=== PATIENT | female | born 1995 | race Caucasian/White ===

== ENCOUNTER 2018-09-15 12:01 | Emergency (ER) | payer OTHER ==
[2018-09-15] MEDS: ONDANSETRON (ODT) 4 MG TAB ODT (13:09)
[2018-09-15] MEDS: KETOROLAC 60 MG INJ IM (13:19)
== END 2018-09-15 14:42 | disposition home or self-care (01) ==
LOC: FTE 12:01
DX: R51 Headache (principal); R00.2 Palpitations
CPT/HCPCS: 81025; 93005; 96372; 99284-25

== ENCOUNTER 2019-05-25 19:21 | Outpatient (CLI) | payer OTHER ==
[2019-05-25 20:42] LABS: ALANINE AMINOTRANSFERASE 424 IU/L (13-69); ALBUMIN 3.4 g/dl (3.3-4.9); ALBUMIN/GLOBULIN RATIO 1.03; ALKALINE PHOSPHATASE 246 IU/L (42-121); ANION GAP 10 (5-13); ASPARTATE AMINO TRANSFERASE 217 IU/L (15-46); BILIRUBIN,INDIRECT 0.4 mg/dl (0-1.1); BILIRUBIN,TOTAL 0.4 mg/dl (0.2-1.3); BLOOD UREA NITROGEN 9 mg/dl (7-20); CALCIUM 9.2 mg/dl (8.4-10.2); CARBON DIOXIDE 21 mmol/L (21-31); CHLORIDE 105 mmol/L (97-110); CREATININE 0.96 mg/dl (0.44-1.00); Estimated GFR > 60 mL/min (>60); GLUCOSE 123 mg/dl (70-220); POTASSIUM 3.8 mmol/L (3.5-5.1); SODIUM 136 mmol/L (135-144); TOTAL PROTEIN 6.7 g/dl (6.1-8.1)
== END 2019-05-25 22:21 | disposition home or self-care (01) ==
LOC: OBT 19:21 → L-D 19:22 → OBT 22:21
DX: O26.893 Other specified pregnancy related conditions, third trimester (principal); L29.9 Pruritus, unspecified; O24.410 Gestational diabetes mellitus in pregnancy, diet controlled; Z3A.33 33 weeks gestation of pregnancy
CPT/HCPCS: 76818; 80053; 82962

== ENCOUNTER 2019-05-26 14:56 | Outpatient (CLI) | payer OTHER ==
[2019-05-26 16:32] LABS: ADD UMIC YES; UR ASCORBIC ACID NEGATIVE (NEGATIVE); UR BACTERIA FEW /HPF (NONE SEEN); UR BILIRUBIN (Dip) NEGATIVE (NEGATIVE); UR BLOOD (Dip) 1+ mg/dL (NEGATIVE); UR CLARITY CLEAR (CLEAR); UR COLOR YELLOW (YELLOW); UR GLUCOSE (Dip) NEGATIVE (NEGATIVE); UR KETONES (Dip) 1+ mg/dL (NEGATIVE); UR LEUKOCYTE ESTERASE (Dip) NEGATIVE Leu/ul (NEGATIVE); UR NITRITE (Dip) NEGATIVE (NEGATIVE); UR RBC 0 /HPF (0-5); UR SPECIFIC GRAVITY (Dip) 1.002 (1.003-1.030); UR TOTAL PROTEIN (Dip) NEGATIVE (NEGATIVE); UR UROBILINOGEN (Dip) NEGATIVE (NEGATIVE); UR WBC 0 /HPF (0-5)
[2019-05-26] MEDS: LACTATED RINGER'S 1,000 ML IV (18:32)
== END 2019-05-26 18:45 | disposition home or self-care (01) ==
LOC: OBT 14:56 → L-D 14:57 → OBT 18:45
DX: O46.8X3 Other antepartum hemorrhage, third trimester (principal); Z3A.33 33 weeks gestation of pregnancy
CPT/HCPCS: 36415; 76817; 76818; 81001

== ENCOUNTER 2019-05-28 13:17 | Outpatient (CLI) | payer OTHER | END 2019-05-28 15:30 | disposition home or self-care (01) | LOC: OBT 13:17 → L-D 13:19 → OBT 15:30 | DX: O26.893 Other specified pregnancy related conditions, third trimester (principal); L29.9 Pruritus, unspecified; Z3A.34 34 weeks gestation of pregnancy | CPT/HCPCS: 76818 ==

== ENCOUNTER 2019-06-01 18:06 | Outpatient (CLI) | payer OTHER ==
[2019-06-01 23:02] LABS: ADD MAN DIFF? NO
[2019-06-01 23:09] LABS: BASOPHILS % 0.4 % (0.0-2.0); EOSINOPHILS # 0.1 10^3/ul (0.0-0.5); EOSINOPHILS % 0.9 % (0.0-7.0); HEMATOCRIT 40.1 % (37.0-47.0); HEMOGLOBIN 13.5 g/dl (12.0-16.0); LYMPHOCYTES # 2.6 10^3/ul (0.8-2.9); LYMPHOCYTES % 33.4 % (15.0-51.0); MEAN CORPUSCULAR HGB CONC 33.7 g/dl (32.0-37.0); MEAN CORPUSCULAR VOLUME 92.2 fl (82.0-101.0); MEAN PLATELET VOLUME 12.6 fl (7.4-10.4); MONOCYTE # 0.5 10^3/ul (0.3-0.9); MONOCYTES % 6.3 % (0.0-11.0); NEUTROPHIL # 4.6 10^3/ul (1.6-7.5); NEUTROPHILS % 58.7 % (39.0-77.0); PLATELET COUNT 214 10^3/UL (140-415); RED BLOOD COUNT 4.35 10^6/ul (4.20-5.40)
[2019-06-01 23:09] LABS: WHITE BLOOD COUNT 7.8 10^3/ul (4.8-10.8)
[2019-06-01 23:25] LABS: ALANINE AMINOTRANSFERASE 372 IU/L (13-69); ALBUMIN 3.2 g/dl (3.3-4.9); ALBUMIN/GLOBULIN RATIO 0.94; ALKALINE PHOSPHATASE 296 IU/L (42-121); ANION GAP 8 (5-13); ASPARTATE AMINO TRANSFERASE 179 IU/L (15-46); BILIRUBIN,INDIRECT 0.4 mg/dl (0-1.1); BILIRUBIN,TOTAL 0.4 mg/dl (0.2-1.3); BLOOD UREA NITROGEN 14 mg/dl (7-20); CARBON DIOXIDE 23 mmol/L (21-31); CHLORIDE 103 mmol/L (97-110); Estimated GFR > 60 mL/min (>60); GLUCOSE 90 mg/dl (70-220); POTASSIUM 3.9 mmol/L (3.5-5.1); SODIUM 134 mmol/L (135-144); TOTAL PROTEIN 6.6 g/dl (6.1-8.1); URIC ACID 5.4 mg/dl (3.1-7.9)
[2019-06-01 23:51] LABS: ADD UMIC NO; UR ASCORBIC ACID NEGATIVE (NEGATIVE); UR BILIRUBIN (Dip) NEGATIVE (NEGATIVE); UR BLOOD (Dip) NEGATIVE (NEGATIVE); UR CLARITY CLEAR (CLEAR); UR COLOR STRAW (YELLOW); UR GLUCOSE (Dip) NEGATIVE (NEGATIVE); UR KETONES (Dip) NEGATIVE (NEGATIVE); UR LEUKOCYTE ESTERASE (Dip) NEGATIVE Leu/ul (NEGATIVE); UR NITRITE (Dip) NEGATIVE (NEGATIVE); UR SPECIFIC GRAVITY (Dip) 1.004 (1.003-1.030); UR TOTAL PROTEIN (Dip) NEGATIVE (NEGATIVE); UR UROBILINOGEN (Dip) NEGATIVE (NEGATIVE)
== END 2019-06-02 00:45 | disposition home or self-care (01) ==
LOC: OBT 18:06 → L-D 18:07
DX: O26.613 Liver and biliary tract disorders in pregnancy, third trimester (principal); K83.1 Obstruction of bile duct; Z3A.34 34 weeks gestation of pregnancy
CPT/HCPCS: 76818; 80053; 81003; 84560; 85025

== ENCOUNTER 2019-06-03 20:11 | Inpatient (IN) | payer OTHER ==
[2019-06-03 22:15] LABS: COLLECTION PERIOD 24 hrs
[2019-06-03 22:35] LABS: CREATININE 0.78 mg/dl (0.44-1.00)
[2019-06-03 22:52] LABS: VOLUME 4100 mls
[2019-06-03 23:00] LABS: CREATININE,URINE RANDOM 29.88 mg/dl (20-320)
[2019-06-03 23:02] LABS: COLLECTION PERIOD 24 hrs; CREATININE CLEARANCE 121.5 mls/min (84.0-162.0); VOLUME 4100 ml/24hrs
[2019-06-04 00:41] LABS: ADD MAN DIFF? NO
[2019-06-04 00:44] LABS: WHITE BLOOD COUNT 7.5 10^3/ul (4.8-10.8)
[2019-06-04 00:44] LABS: BASOPHILS % 0.4 % (0.0-2.0); EOSINOPHILS # 0.1 10^3/ul (0.0-0.5); EOSINOPHILS % 0.7 % (0.0-7.0); HEMATOCRIT 39.6 % (37.0-47.0); HEMOGLOBIN 13.4 g/dl (12.0-16.0); LYMPHOCYTES # 2.2 10^3/ul (0.8-2.9); LYMPHOCYTES % 29.6 % (15.0-51.0); MEAN CORPUSCULAR HGB CONC 33.8 g/dl (32.0-37.0); MEAN CORPUSCULAR VOLUME 91.7 fl (82.0-101.0); MEAN PLATELET VOLUME 12.6 fl (7.4-10.4); MONOCYTE # 0.4 10^3/ul (0.3-0.9); MONOCYTES % 5.2 % (0.0-11.0); NEUTROPHIL # 4.8 10^3/ul (1.6-7.5); NEUTROPHILS % 63.7 % (39.0-77.0); PLATELET COUNT 215 10^3/UL (140-415); RED BLOOD COUNT 4.32 10^6/ul (4.20-5.40)
[2019-06-04 01:09] LABS: HEMOGLOBIN A1C 5.1 % (0-5.9)
[2019-06-04 01:22] LABS: ALANINE AMINOTRANSFERASE 526 IU/L (13-69); ALBUMIN 3.3 g/dl (3.3-4.9); ALBUMIN/GLOBULIN RATIO 0.94; ALKALINE PHOSPHATASE 336 IU/L (42-121); ANION GAP 7 (5-13); ASPARTATE AMINO TRANSFERASE 297 IU/L (15-46); BILIRUBIN,INDIRECT 0.5 mg/dl (0-1.1); BILIRUBIN,TOTAL 0.5 mg/dl (0.2-1.3); BLOOD UREA NITROGEN 10 mg/dl (7-20); CALCIUM 9.7 mg/dl (8.4-10.2); CARBON DIOXIDE 19 mmol/L (21-31); CHLORIDE 108 mmol/L (97-110); CREATININE 0.62 mg/dl (0.44-1.00); Estimated GFR > 60 mL/min (>60); GLUCOSE 79 mg/dl (70-220); POTASSIUM 3.7 mmol/L (3.5-5.1); SODIUM 134 mmol/L (135-144); TOTAL PROTEIN 6.8 g/dl (6.1-8.1); URIC ACID 6.3 mg/dl (3.1-7.9)
[2019-06-04] MEDS ORDERED: AL HYDROX/MG HYDROX/SIMETH 30 ML CUP PO ×2 (03:00→05:30)
[2019-06-04 04:04] LABS: INR 0.88; PARTIAL THROMBOPLASTIN TIME 28.6 Sec (23.0-35.0); PT RATIO 0.9
[2019-06-04] MEDS ORDERED: GLUCAGON 1 MG INJ IM (05:30)
[2019-06-04] MEDS ORDERED: GLUCOSE GEL 15 GRAM TUBE PO ×2 (05:30)
[2019-06-04] MEDS ORDERED: DEXTROSE 50% 50 ML SYRINGE IV ×2 (05:30)
[2019-06-04] MEDS ORDERED: GLUCOSE GEL 15 GRAM TUBE BUCCAL (05:30)
[2019-06-04] MEDS: BETAMET NA PHOS/AC(6 MG/ML) 2 ML INJ SYG IM ×2 (05:36→17:36)
[2019-06-04] MEDS: ACCU-CHEK XX ×4 (07:30→21:03)
[2019-06-04] MEDS ORDERED: FERROUS SULFATE (EC) 325 MG TAB PO (09:00)
[2019-06-04] MEDS: PRENATAL VITAMIN PO (09:03)
[2019-06-04] MEDS: URSODIOL 250 MG TAB PO ×2 (09:03→21:01)
[2019-06-04] MEDS ORDERED: LIDOCAINE 1% (MPF) 30 ML INJ INJ (12:30)
[2019-06-04] MEDS ORDERED: MISOPROSTOL 200 MCG TAB PR (12:30)
[2019-06-04] MEDS ORDERED: BUTORPHANOL 2 MG INJ IV (12:30)
[2019-06-04] MEDS ORDERED: OXYTOCIN 30 UNITS/LR 500 ML IV (12:30)
[2019-06-04] MEDS ORDERED: METHYLERGONOVINE 0.2 MG INJ IM (12:30)
[2019-06-04] MEDS ORDERED: CARBOPROST 250 MCG INJ IM (12:30)
[2019-06-04] MEDS: LACTATED RINGER'S 1,000 ML IV ×2 (12:40→18:48)
[2019-06-04 13:10] LABS: ADD MAN DIFF? NO
[2019-06-04 13:12] LABS: WHITE BLOOD COUNT 5.3 10^3/ul (4.8-10.8)
[2019-06-04 13:12] LABS: BASOPHILS % 0.2 % (0.0-2.0); EOSINOPHILS % 0.2 % (0.0-7.0); HEMATOCRIT 41.7 % (37.0-47.0); HEMOGLOBIN 13.8 g/dl (12.0-16.0); LYMPHOCYTES # 1.2 10^3/ul (0.8-2.9); LYMPHOCYTES % 22.3 % (15.0-51.0); MEAN CORPUSCULAR HEMOGLOBIN 30.7 pg (29.0-33.0); MEAN CORPUSCULAR HGB CONC 33.1 g/dl (32.0-37.0); MEAN CORPUSCULAR VOLUME 92.7 fl (82.0-101.0); MONOCYTE # 0.1 10^3/ul (0.3-0.9); MONOCYTES % 2.5 % (0.0-11.0); NEUTROPHILS % 74.6 % (39.0-77.0); PLATELET COUNT 234 10^3/UL (140-415); RED CELL DISTRIBUTION WIDTH 14.4 % (11.5-14.5)
[2019-06-04 13:36] LABS: INR 0.84; PROTIME 11.6 Sec (11.9-14.9); PT RATIO 0.9
[2019-06-04] MEDS: MISOPROSTOL 50 MCG CAPSULE PO ×3 (14:57→19:49)
[2019-06-04] MEDS: AMPICILLIN 2 GM/NS (PMX) 100 ML IV (14:57)
[2019-06-04] MEDS: AMPICILLIN 1 GM/NS (PMX) 50 ML IV ×2 (16:30→19:50)
[2019-06-04 21:56] LABS: RAPID PLASMA REAGIN NONREACTIVE (NR)
[2019-06-04 21:57] LABS: RAPID PLASMA REAGIN NONREACTIVE (NR)
[2019-06-05] MEDS: MISOPROSTOL 50 MCG CAPSULE PO (00:31)
[2019-06-05] MEDS: AMPICILLIN 1 GM/NS (PMX) 50 ML IV ×4 (00:31→12:30)
[2019-06-05] MEDS: LACTATED RINGER'S 1,000 ML IV ×2 (02:25→03:24)
[2019-06-05] MEDS ORDERED: HYDROmorphONE 0.5 MG/0.5 ML SYG IV ×2 (04:30)
[2019-06-05] MEDS ORDERED: NALOXONE (0.4 MG/ML) INJ IV (04:30)
[2019-06-05] MEDS ORDERED: KETOROLAC 30 MG INJ IV (04:30)
[2019-06-05] MEDS ORDERED: DIPHENHYDRAMINE 50 MG INJ IV (04:30)
[2019-06-05] MEDS ORDERED: ONDANSETRON 4 MG INJ IV (04:30)
[2019-06-05] MEDS ORDERED: FENTAnyl 2MCG/ML-ROPIV 0.2% 100 ML BAG EPI (04:30)
[2019-06-05] MEDS: TERBUTALINE 1 MG/ML INJ SC (05:48)
[2019-06-05] MEDS: ACCU-CHEK XX (06:00)
[2019-06-05] MEDS: URSODIOL 250 MG TAB PO (09:00)
[2019-06-05] MEDS: OXYTOCIN 30 UNITS/LR 500 ML IV ×2 (10:45→10:48)
[2019-06-05] MEDS: ACETAMINOPHEN 325 MG TAB PO (11:29)
[2019-06-05] MEDS ORDERED: ACETAMINOPHEN 325 MG TAB PO (13:00)
[2019-06-05] MEDS ORDERED: DIBUCAINE 1% 30 GM OINT TOP (13:00)
[2019-06-05] MEDS ORDERED: HYDROCODONE/APAP (5/325) TAB PO (13:00)
[2019-06-05] MEDS ORDERED: MISOPROSTOL 200 MCG TAB PR (13:00)
[2019-06-05] MEDS ORDERED: OXYTOCIN 30 UNITS/LR 500 ML IV (13:00)
[2019-06-05] MEDS ORDERED: CARBOPROST 250 MCG INJ IM (13:00)
[2019-06-05] MEDS: LACTATED RINGER'S 1,000 ML IV* ×2 (14:50→20:34)
[2019-06-05] MEDS: WITCH HAZEL/GLYCERIN PAD PR (17:44)
[2019-06-05] MEDS: IBUPROFEN 600 MG TAB PO (17:45)
[2019-06-05] MEDS: BENZOCAINE 20% 56 ML SPRAY TOP (17:45)
[2019-06-06] MEDS: SENNA/DOCUSATE NA (8.6MG/50MG) TAB PO ×3 (00:12→22:11)
[2019-06-06] MEDS: IBUPROFEN 600 MG TAB PO ×5 (00:13→23:38)
[2019-06-06] MEDS: LACTATED RINGER'S 1,000 ML IV* (04:34)
[2019-06-06 08:30] LABS: ADD MAN DIFF? NO
[2019-06-06 08:45] LABS: WHITE BLOOD COUNT 17.8 10^3/ul (4.8-10.8)
[2019-06-06 08:45] LABS: ABNORMAL IP MESSAGE 1; BASOPHILS % 0.2 % (0.0-2.0); EOSINOPHILS % 0.2 % (0.0-7.0); HEMATOCRIT 32.6 % (37.0-47.0); HEMOGLOBIN 10.9 g/dl (12.0-16.0); LYMPHOCYTES # 2.5 10^3/ul (0.8-2.9); LYMPHOCYTES % 13.9 % (15.0-51.0); MEAN CORPUSCULAR HEMOGLOBIN 31.4 pg (29.0-33.0); MEAN CORPUSCULAR HGB CONC 33.4 g/dl (32.0-37.0); MEAN CORPUSCULAR VOLUME 93.9 fl (82.0-101.0); MEAN PLATELET VOLUME 13.4 fl (7.4-10.4); MONOCYTE # 0.7 10^3/ul (0.3-0.9); MONOCYTES % 3.9 % (0.0-11.0); NEUTROPHIL # 14.5 10^3/ul (1.6-7.5); NEUTROPHILS % 81.3 % (39.0-77.0); PLATELET COUNT 154 10^3/UL (140-415); RED BLOOD COUNT 3.47 10^6/ul (4.20-5.40); RED CELL DISTRIBUTION WIDTH 14.8 % (11.5-14.5)
[2019-06-06 09:19] LABS: POSITIVE DIFF @See below
[2019-06-06 09:27] LABS: ALANINE AMINOTRANSFERASE 477 IU/L (13-69); ALBUMIN 2.5 g/dl (3.3-4.9); ALKALINE PHOSPHATASE 189 IU/L (42-121); ANION GAP 3 (5-13); ASPARTATE AMINO TRANSFERASE 168 IU/L (15-46); BILIRUBIN,INDIRECT 0.3 mg/dl (0-1.1); BILIRUBIN,TOTAL 0.3 mg/dl (0.2-1.3); BLOOD UREA NITROGEN 10 mg/dl (7-20); CALCIUM 8.9 mg/dl (8.4-10.2); CARBON DIOXIDE 26 mmol/L (21-31); CHLORIDE 105 mmol/L (97-110); CREATININE 0.66 mg/dl (0.44-1.00); Estimated GFR > 60 mL/min (>60); GLUCOSE 73 mg/dl (70-220); POTASSIUM 3.8 mmol/L (3.5-5.1); SODIUM 134 mmol/L (135-144); URIC ACID 6.8 mg/dl (3.1-7.9)
[2019-06-07] MEDS: IBUPROFEN 600 MG TAB PO ×3 (07:28→18:03)
[2019-06-07 07:49] LABS: ADD MAN DIFF? NO
[2019-06-07 07:53] LABS: BASOPHILS % 0.3 % (0.0-2.0); EOSINOPHILS # 0.1 10^3/ul (0.0-0.5); EOSINOPHILS % 1.1 % (0.0-7.0); HEMATOCRIT 37.3 % (37.0-47.0); HEMOGLOBIN 12.3 g/dl (12.0-16.0); LYMPHOCYTES # 2.5 10^3/ul (0.8-2.9); LYMPHOCYTES % 21.2 % (15.0-51.0); MEAN PLATELET VOLUME 12.4 fl (7.4-10.4); MONOCYTE # 0.5 10^3/ul (0.3-0.9); MONOCYTES % 4.1 % (0.0-11.0); NEUTROPHIL # 8.7 10^3/ul (1.6-7.5); NEUTROPHILS % 72.6 % (39.0-77.0); PLATELET COUNT 191 10^3/UL (140-415); RED BLOOD COUNT 3.97 10^6/ul (4.20-5.40); RED CELL DISTRIBUTION WIDTH 14.7 % (11.5-14.5)
[2019-06-07 08:26] LABS: ALANINE AMINOTRANSFERASE 428 IU/L (13-69); ALBUMIN 2.7 g/dl (3.3-4.9); ALKALINE PHOSPHATASE 204 IU/L (42-121); ANION GAP 6 (5-13); ASPARTATE AMINO TRANSFERASE 108 IU/L (15-46); BILIRUBIN,INDIRECT 0.3 mg/dl (0-1.1); BILIRUBIN,TOTAL 0.3 mg/dl (0.2-1.3); BLOOD UREA NITROGEN 12 mg/dl (7-20); CALCIUM 9.4 mg/dl (8.4-10.2); CARBON DIOXIDE 28 mmol/L (21-31); CHLORIDE 103 mmol/L (97-110); CREATININE 0.64 mg/dl (0.44-1.00); Estimated GFR > 60 mL/min (>60); GLUCOSE 70 mg/dl (70-220); POTASSIUM 4.5 mmol/L (3.5-5.1); SODIUM 137 mmol/L (135-144); TOTAL PROTEIN 5.4 g/dl (6.1-8.1); URIC ACID 6.2 mg/dl (3.1-7.9)
[2019-06-07] MEDS: SENNA/DOCUSATE NA (8.6MG/50MG) TAB PO ×2 (09:23→21:08)
[2019-06-08] MEDS: IBUPROFEN 600 MG TAB PO ×4 (06:00→17:40)
[2019-06-08] MEDS: SENNA/DOCUSATE NA (8.6MG/50MG) TAB PO ×2 (09:00→21:00)
[2019-06-08 10:17] LABS: ADD MAN DIFF? NO
[2019-06-08 10:20] LABS: WHITE BLOOD COUNT 9.9 10^3/ul (4.8-10.8)
[2019-06-08 10:20] LABS: BASOPHIL # 0.1 10^3/ul (0.0-0.1); BASOPHILS % 0.5 % (0.0-2.0); EOSINOPHILS # 0.6 10^3/ul (0.0-0.5); EOSINOPHILS % 5.7 % (0.0-7.0); HEMATOCRIT 35.6 % (37.0-47.0); HEMOGLOBIN 11.6 g/dl (12.0-16.0); LYMPHOCYTES # 2.8 10^3/ul (0.8-2.9); LYMPHOCYTES % 28.7 % (15.0-51.0); MEAN CORPUSCULAR HEMOGLOBIN 30.3 pg (29.0-33.0); MEAN CORPUSCULAR HGB CONC 32.6 g/dl (32.0-37.0); MEAN PLATELET VOLUME 12.2 fl (7.4-10.4); MONOCYTE # 0.4 10^3/ul (0.3-0.9); MONOCYTES % 4.2 % (0.0-11.0); NEUTROPHILS % 60.5 % (39.0-77.0); PLATELET COUNT 236 10^3/UL (140-415); RED BLOOD COUNT 3.83 10^6/ul (4.20-5.40); RED CELL DISTRIBUTION WIDTH 14.7 % (11.5-14.5)
[2019-06-08 10:40] LABS: ALANINE AMINOTRANSFERASE 337 IU/L (13-69); ALBUMIN 3.3 g/dl (3.3-4.9); ALKALINE PHOSPHATASE 249 IU/L (42-121); ANION GAP 6 (5-13); ASPARTATE AMINO TRANSFERASE 96 IU/L (15-46); BILIRUBIN,INDIRECT 0.3 mg/dl (0-1.1); BILIRUBIN,TOTAL 0.3 mg/dl (0.2-1.3); BLOOD UREA NITROGEN 13 mg/dl (7-20); CALCIUM 9.5 mg/dl (8.4-10.2); CARBON DIOXIDE 28 mmol/L (21-31); CHLORIDE 100 mmol/L (97-110); CREATININE 0.68 mg/dl (0.44-1.00); Estimated GFR > 60 mL/min (>60); GLUCOSE 94 mg/dl (70-220); POTASSIUM 3.9 mmol/L (3.5-5.1); SODIUM 134 mmol/L (135-144); TOTAL PROTEIN 6.3 g/dl (6.1-8.1); URIC ACID 6.6 mg/dl (3.1-7.9)
[2019-06-09] MEDS: IBUPROFEN 600 MG TAB PO ×4 (06:00→18:18)
[2019-06-09] MEDS: SENNA/DOCUSATE NA (8.6MG/50MG) TAB PO (09:02)
[2019-06-09] MEDS: DIPHTH/TET/ACEL PERTUSS (ADULT) 0.5 ML VIAL IM* ×2 (12:42→12:43)
[2019-06-09] MEDS: BENZOCAINE 20% 56 ML SPRAY TOP (20:14)
[2019-06-09] MEDS: WITCH HAZEL/GLYCERIN PAD PR (20:14)
== END 2019-06-09 20:40 | disposition home or self-care (01) | DRG 807 ==
LOC: OBT 20:11 → L-D 20:13 → PP1 06-05 12:09 → L-D 21:22
PROC: 10E0XZZ Delivery of Products of Conception, External Approach (ICD-10-PCS; principal; 2019-06-05)
PROC: 0KQM0ZZ Repair Perineum Muscle, Open Approach (ICD-10-PCS; 2019-06-05)
DX: O60.13X0 Preterm labor second trimester with preterm delivery third trimester, not applicable or unspecified (principal); O70.1 Second degree perineal laceration during delivery; Z3A.35 35 weeks gestation of pregnancy; Z37.0 Single live birth
CPT/HCPCS: 62322; 76815; 76818; 80053; 82565; 82575; 82962; 83036; 84156; 84560; 85025; 85610; 85730; 86592; 86850; 86900; 86901; 88307; 90715; 99464

== ENCOUNTER 2019-06-11 23:53 | Emergency (ER) | payer OTHER ==
[2019-06-12 02:14] LABS: ADD MAN DIFF? NO
[2019-06-12 02:15] LABS: WHITE BLOOD COUNT 10.6 10^3/ul (4.8-10.8)
[2019-06-12 02:15] LABS: BASOPHIL # 0.1 10^3/ul (0.0-0.1); BASOPHILS % 0.5 % (0.0-2.0); EOSINOPHILS # 0.4 10^3/ul (0.0-0.5); EOSINOPHILS % 3.3 % (0.0-7.0); HEMATOCRIT 41.1 % (37.0-47.0); HEMOGLOBIN 13.4 g/dl (12.0-16.0); LYMPHOCYTES # 3.5 10^3/ul (0.8-2.9); LYMPHOCYTES % 33.6 % (15.0-51.0); MEAN CORPUSCULAR HEMOGLOBIN 30.7 pg (29.0-33.0); MEAN CORPUSCULAR HGB CONC 32.6 g/dl (32.0-37.0); MEAN CORPUSCULAR VOLUME 94.1 fl (82.0-101.0); MEAN PLATELET VOLUME 11.1 fl (7.4-10.4); MONOCYTE # 0.5 10^3/ul (0.3-0.9); MONOCYTES % 4.8 % (0.0-11.0); NEUTROPHILS % 57.2 % (39.0-77.0); PLATELET COUNT 428 10^3/UL (140-415); RED BLOOD COUNT 4.37 10^6/ul (4.20-5.40); RED CELL DISTRIBUTION WIDTH 14.2 % (11.5-14.5)
[2019-06-12 02:46] LABS: ADD UMIC YES; UR ASCORBIC ACID NEGATIVE (NEGATIVE); UR BACTERIA FEW /HPF (NONE SEEN); UR BILIRUBIN (Dip) NEGATIVE (NEGATIVE); UR BLOOD (Dip) 3+ mg/dL (NEGATIVE); UR CLARITY CLEAR (CLEAR); UR COLOR STRAW (YELLOW); UR GLUCOSE (Dip) NEGATIVE (NEGATIVE); UR KETONES (Dip) NEGATIVE (NEGATIVE); UR LEUKOCYTE ESTERASE (Dip) 2+ Leu/ul (NEGATIVE); UR NITRITE (Dip) NEGATIVE (NEGATIVE); UR RBC 2 /HPF (0-5); UR SPECIFIC GRAVITY (Dip) 1.004 (1.003-1.030); UR TOTAL PROTEIN (Dip) NEGATIVE (NEGATIVE); UR UROBILINOGEN (Dip) NEGATIVE (NEGATIVE); UR WBC 24 /HPF (0-5)
[2019-06-12 03:36] LABS: ALANINE AMINOTRANSFERASE 176 IU/L (13-69); ALBUMIN 4.3 g/dl (3.3-4.9); ALBUMIN/GLOBULIN RATIO 1.38; ALKALINE PHOSPHATASE 261 IU/L (42-121); ANION GAP 10 (5-13); ASPARTATE AMINO TRANSFERASE 53 IU/L (15-46); BILIRUBIN,INDIRECT 0.3 mg/dl (0-1.1); BILIRUBIN,TOTAL 0.3 mg/dl (0.2-1.3); BLOOD UREA NITROGEN 16 mg/dl (7-20); CALCIUM 10.1 mg/dl (8.4-10.2); CARBON DIOXIDE 25 mmol/L (21-31); CHLORIDE 104 mmol/L (97-110); Estimated GFR > 60 mL/min (>60); GLUCOSE 100 mg/dl (70-220); POTASSIUM 4.7 mmol/L (3.5-5.1); SODIUM 139 mmol/L (135-144); TOTAL PROTEIN 7.4 g/dl (6.1-8.1)
== END 2019-06-12 04:02 | disposition home or self-care (01) ==
LOC: FTE 23:53
DX: O10.03 Pre-existing essential hypertension complicating the puerperium (principal); O86.22 Infection of bladder following delivery; B96.89 Other specified bacterial agents as the cause of diseases classified elsewhere
CPT/HCPCS: 80053; 81001; 85025; 99283